=== PATIENT | female | born 1965 | race Hispanic/Latino ===

== ENCOUNTER 2018-11-01 15:34 | Outpatient (CLI) | payer BC ==
--- NOTE | 2018-11-02 07:20 | CT ---
HEAD CT WITHOUT IV CONTRAST: History: Headaches for one week. FINDINGS: No focal mass or midline shift. No intra or extraaxial hemorrhage. There is a very tiny punctate calc ification in the right posterior parietal gyral region, certainly not of any acute significance. IMPRESSION: No mass or bleed or other acute process. Very tiny, approximately 1 mm circumscribed calcification in the right parietal gyral region. If the patient has persistent or worsening unexplained headaches, consider nonemergent follow up MRI with and without IV contrast. POS: [facility]
== END 2018-11-01 15:35 | disposition home or self-care (01) ==
LOC: BICCT 15:34
PROVIDERS: ATTEND Psychiatry & Neurology Neurology
DX: R51 Headache (principal); G93.89 Other specified disorders of brain
CPT/HCPCS: 70450

== ENCOUNTER 2022-04-24 13:21 | Outpatient (CLI) | payer BC | END 2022-04-24 13:22 | disposition home or self-care (01) | LOC: BICRAD 13:21 | PROVIDERS: ATTEND Internal Medicine Rheumatology | DX: M54.50 Low back pain, unspecified (principal); E55.9 Vitamin D deficiency, unspecified; M25.50 Pain in unspecified joint; M47.816 Spondylosis without myelopathy or radiculopathy, lumbar region; Z79.899 Other long term (current) drug therapy | CPT/HCPCS: 72110 ==

== ENCOUNTER 2023-11-12 10:20 | Outpatient (CLI) | payer BC | END 2023-11-12 10:21 | disposition home or self-care (01) | LOC: BICRAD 10:20 | PROVIDERS: ATTEND Nurse Practitioner Family | DX: R19.02 Left upper quadrant abdominal swelling, mass and lump (principal) | CPT/HCPCS: 74018 ==